=== PATIENT | male | born 1980 | race African-American/Black ===

== ENCOUNTER 2017-10-09 12:36 | Emergency (ER) | payer OTHER ==
[~2017-10-09] VITALS: Ht 185.4 cm; Wt 128.0 kg
[2017-10-09 12:46] VITALS: BP 157/107; PULSE 84; RESP 17; TEMP 98.5; O2SAT 97
[2017-10-09] MEDS ORDERED: SODIUM CHLORIDE 0.9% FLUSH 10 ML FLUSH IVF PRN (13:15)
--- NOTE | 2017-10-09 13:20 | PD ---
HPI Chief Complaint: Chest Pain Time Seen by Provider: 13:00 Travel History International Travel<30 days: No Contact w/Intl Traveler<30days: No Traveled to known affect area: No History of Present Illness HPI This patient complains of chest pain. Location is left lower chest. Severity is moderate. [place] like an aching pressure. Duration 1 day. He is currently pain-free. He also reports some dyspnea. Has history of CHF. He has some chronic leg edema and is on diuretics. He is compliant with medication. He lives at the [facility]. His medications are given to him by staff. He does not know why he developed congestive heart failure at age 35. He is a hypertensive with high cholesterol. No history of cardiac stress testing per his report COUNTS INCLUDE 234 BEDS AT THE [facility] Past Medical History Cardiovascular Problems: Yes (CHF) Social History Alcohol Use: No Tobacco Use: No Substance Use: No Allergies-Medications (Allergen,Severity, Reaction): Coded Allergies: No Known Allergies (Unverified , 10/09/17) Reported Meds & Prescriptions Reported Meds & Active Scripts Active Reported Fenofibrate 145 Mg Tab 145 Mg PO DAILY Amlodipine (Amlodipine Besylate) 10 Mg Tab 10 Mg PO DAILY Pravastatin 40 Mg Tab 40 Mg PO DAILY Furosemide 40 Mg Tab 40 Mg PO DAILY Clonidine (Clonidine HCl) 0.1 Mg Tab 0.1 Mg PO BID Lisinopril 40 Mg Tab 40 Mg PO BID Carvedilol 25 Mg Tab 25 Mg BID Review of Systems General / Constitutional: No: Fever Eyes: No: Visual changes HENT: No: Headaches Cardiovascular: Positive: Chest Pain or Discomfort, Edema Respiratory: Positive: Shortness of Breath Gastrointestinal: No: Abdominal Pain Genitourinary: No: Dysuria Musculoskeletal: Positive: Edema, No: Pain Skin: No Rash Neurologic: No: Weakness Psychiatric: No: Depression Endocrine: No: Polydipsia Hematologic/Lymphatic: No: Easy Bruising Physical Exam Narrative GENERAL: Well-nourished, well-developed patient in no apparent distress. SKIN: Focused skin assessment reveals no rash and nodules. Skin is Warm and dry. HEAD: Atraumatic. Normocephalic. EYES: Pupils equal and round. No scleral icterus. No injection or drainage. ENT: No nasal bleeding or discharge. Mucous membranes pink and moist. NECK: Trachea midline. No JVD. CARDIOVASCULAR: Regular rate and rhythm. No murmur appreciated. RESPIRATORY: No accessory muscle use. Clear to auscultation. Breath sounds equal bilaterally. GASTROINTESTINAL: Abdomen soft, non-tender, nondistended. Hepatic and splenic margins not palpable. MUSCULOSKELETAL: No obvious deformities. No clubbing. No cyanosis. Symmetric edema the feet ankles and lower legs, nonpitting. NEUROLOGICAL: Awake and alert. No obvious cranial nerve deficits. Motor grossly within normal limits. Normal speech. PSYCHIATRIC: Appropriate mood and affect; insight and judgment normal. Data Data Last Documented VS Vital Signs Date Time Temp Pulse Resp B/P (MAP) Pulse Ox O2 Delivery O2 Flow Rate FiO2 10/09/17 17:45 10/09/17 17:16 76 18 98 Room Air 10/09/17 12:46 98.5 Orders Orders Electrocardiogram (10/09/17 13:13) Basic Metabolic Panel (Bmp) (10/09/17 13:13) Ckmb (Isoenzyme) Profile (10/09/17 13:13) Complete Blood Count With Diff (10/09/17 13:13) Prothrombin Time / Inr (Pt) (10/09/17 13:13) Act Partial Throm Time (Ptt) (10/09/17 13:13) Troponin I (10/09/17 13:13) Chest, Single Ap (10/09/17 13:13) Ecg Monitoring (10/09/17 13:13) Iv Access Insert/Monitor (10/09/17 13:13) Oximetry (10/09/17 13:13) Oxygen Administration (10/09/17 13:13) Sodium Chloride 0.9% Flush (Ns Flush) (10/09/17 13:15) CKMB (10/09/17 13:55) CKMB% (10/09/17 13:55) Labs Laboratory Tests Test 10/09/17 13:55 White Blood Count 5.4 TH/MM3 Red Blood Count 4.46 MIL/MM3 Hemoglobin 13.8 GM/DL Hematocrit 40.4 % Mean Corpuscular Volume 90.7 FL Mean Corpuscular Hemoglobin 31.0 PG Mean Corpuscular Hemoglobin Concent 34.2 % Red Cell Distribution Width 14.1 % Platelet Count 200 TH/MM3 Mean Platelet Volume 9.2 FL Neutrophils (%) (Auto) 58.8 % Lymphocytes (%) (Auto) 28.6 % Monocytes (%) (Auto) 9.0 % Eosinophils (%) (Auto) 3.2 % Basophils (%) (Auto) 0.4 % Neutrophils # (Auto) 3.2 TH/MM3 Lymphocytes # (Auto) 1.5 TH/MM3 Monocytes # (Auto) 0.5 TH/MM3 Eosinophils # (Auto) 0.2 TH/MM3 Basophils # (Auto) 0.0 TH/MM3 CBC Comment DIFF FINAL Differential Comment Prothrombin Time 11.2 SEC Prothromb Time International Ratio 1.1 RATIO Activated Partial Thromboplast Time 26.8 SEC Blood Urea Nitrogen 15 MG/DL Creatinine 1.49 MG/DL Random Glucose 99 MG/DL Calcium Level 8.9 MG/DL Sodium Level 145 MEQ/L Potassium Level 3.8 MEQ/L Chloride Level 109 MEQ/L Carbon Dioxide Level 27.8 MEQ/L Anion Gap 8 MEQ/L Estimat Glomerular Filtration Rate 65 ML/MIN Total Creatine Kinase 363 U/L Creatine Kinase MB 2.4 NG/ML Creatine Kinase MB % 0.7 % Troponin I LESS THAN 0.02 NG/ML MDM Medical Decision Making Medical Screen Exam Complete: Yes Emergency Medical Condition: Yes Medical Record Reviewed: Yes Differential Diagnosis Differential diagnosis includes WI, angina, pericarditis, pleurisy, GERD, anxiety. Narrative Course I have reviewed the patient's electronic medical record. Gave him an aspirin I reviewed his EKG which shows no ST elevation Extended cardiac monitoring shows sinus rhythm without ectopy Labs sent Reviewed his chest x-ray which shows nothing emergent Cardiac enzymes and general labs are normal He has multiple risk factors including hypertension and hyperlipidemia and obesity He refuses and says he has more important things to do then check his heart out. He will sign out AGAINST MEDICAL ADVICE. I advised him to return if he worsens or changes his mind. Diagnosis Primary Impression: Chest pain at rest Additional Impressions: Hypertension Qualified Codes: I10 - Essential (primary) hypertension Hyperlipidemia Qualified Codes: E78.5 - Hyperlipidemia, unspecified Disposition: 07 AGAINST MEDICAL ADVICE Anthony Davies MD October 09, 2017 13:20
[2017-10-09 13:41] VITALS: BP 130/73; PULSE 88; RESP 18; O2SAT 98
[2017-10-09 13:43] VITALS: BP 130/73; PULSE 88; RESP 18; O2SAT 98
[2017-10-09] MEDS ORDERED: FURO40TA PO (13:46)
[2017-10-09] MEDS ORDERED: CARV25TA (13:46)
[2017-10-09] MEDS ORDERED: FENO145T2 PO (13:46)
[2017-10-09] MEDS ORDERED: CLON0.1T PO (13:46)
[2017-10-09] MEDS ORDERED: LISI40TA PO (13:46)
[2017-10-09] MEDS ORDERED: PRAV40TA2 PO (13:46)
[2017-10-09] MEDS ORDERED: AMLO10TA2 PO (13:46)
--- NOTE | 2017-10-09 14:07 | RADRPT ---
EXAM DATE/TIME: 10/09/2017 13:25 [facility] COMPARISON: No previous studies available for comparison. INDICATIONS : Chest pain. MEDICAL HISTORY : Hypertension. Diabetes mellitus type II. Congestive heart failure. SURGICAL HISTORY : None. ENCOUNTER: Initial ACUITY: 1 day PAIN SCORE: 8/10 LOCATION: Bilateral chest FINDINGS: A single view of the chest demonstrates the lungs to be symmetrically aerated without evidence of mas s, infiltrate or effusion. The cardiomediastinal contours are unremarkable. Osseous structures are intact. CONCLUSION: No acute disease. Jorge Neil MD on October 09, 2017 at 14:05 Board Certified Radiologist. This report was verified electronically.
[2017-10-09 14:20] LABS: AUTOMATED NEUTROPHIL # 3.2 TH/MM3 (1.8-7.7); BASOPHIL % 0.4 % (0.0-2.0); EOSINOPHIL # 0.2 TH/MM3 (0-0.4); EOSINOPHIL % 3.2 % (0.0-4.0); HEMATOCRIT 40.4 % (39.0-51.0); HEMOGLOBIN 13.8 GM/DL (13.0-17.0); LYMPH % 28.6 % (9.0-44.0); LYMPHOCYTE # 1.5 TH/MM3 (1.0-4.8); MEAN CELL VOLUME 90.7 FL (80.0-100.0); MEAN CORPUSCULAR HGB CONC 34.2 % (32.0-36.0); MEAN PLATELET VOLUME 9.2 FL (7.0-11.0); MONOCYTE # 0.5 TH/MM3 (0-0.9); NEUT % 58.8 % (16.0-70.0); PLATELET COUNT 200 TH/MM3 (150-450); RED BLOOD COUNT 4.46 MIL/MM3 (4.50-5.90); RED CELL DISTRIBUTION WIDTH 14.1 % (11.6-17.2); WHITE BLOOD COUNT 5.4 TH/MM3 (4.0-11.0)
[2017-10-09 14:30] LABS: INTERNATIONAL NORMALIZED RATIO 1.1 RATIO; PROTHROMBIN TIME - PATIENT 11.2 SEC (9.8-11.6)
[2017-10-09 14:50] LABS: TROPONIN I LESS THAN 0.02 NG/ML (0.02-0.05)
[2017-10-09 15:05] LABS: BICARBONATE 27.8 MEQ/L (21.0-32.0); BLOOD UREA NITROGEN 15 MG/DL (7-18); CALCIUM 8.9 MG/DL (8.5-10.1); CHLORIDE 109 MEQ/L (98-107); CREATININE 1.49 MG/DL (0.60-1.30); GLOMERULAR FILTRATION RATE 65 ML/MIN (>89); GLUCOSE,RANDOM 99 MG/DL (74-106); SODIUM (NA) 145 MEQ/L (136-145)
[2017-10-09 17:16] VITALS: BP 134/86; PULSE 76; RESP 18; O2SAT 98
--- NOTE | 2017-10-10 16:07 | EKG ---
Date Performed: 10/09/2017 Time Performed: 13:59:20 PTAGE: 36 years EKG: Sinus rhythm POSSIBLE ANTERIOR MYOCARDIAL INFARCTION ABNORMAL ECG NO PREVIOUS TRACING DOCTOR: Branden Gipson Interpretating Date/Time 10/10/2017 16:03:37
== END 2017-10-09 18:29 | disposition left against medical advice (07) ==
LOC: NEPC 12:36
DX: R07.9 Chest pain, unspecified (principal); I11.0 Hypertensive heart disease with heart failure; I50.9 Heart failure, unspecified; E78.5 Hyperlipidemia, unspecified
CPT/HCPCS: 71045; 80048; 82550; 82552; 84484; 85025; 85610; 85730; 93005; 99285